=== PATIENT | male | born 1955 | race African-American/Black ===

== ENCOUNTER 2024-02-01 17:00 | Emergency (ER) | payer OTHER ==
[~2024-02-01] VITALS: Ht 182.9 cm; Wt 91.0 kg
[2024-02-01 17:04] VITALS: O2SAT 98
[2024-02-01 17:51] LABS: BASOPHILS % 0.7 % (0.0-2.0); EOSINOPHILS % 1.2 % (0.0-5.0); HEMATOCRIT. 35.7 % (42.0-52.0); HEMOGLOBIN. 11.7 g/dL (14.0-18.0); LYMPHOCYTES % 18.1 % (20.0-50.0); MEAN CORPUSCULAR HEMOGLOBIN 30.3 pg (28.0-32.0); MEAN CORPUSCULAR HGB CONC 32.8 g/dL (31.0-37.0); MEAN CORPUSCULAR VOLUME 92.3 fL (80.0-94.0); MEAN PLATELET VOLUME 10.6 fl (7.4-10.4); MONOCYTES % 7.4 % (2.0-8.0); NEUTROPHILS % 72.6 % (40.0-76.0); PLATELET 185 x1000/uL (130-400); RED BLOOD CELL COUNT 3.87 mill/uL (4.7-6.1); RED CELL DISTRIBUTION WIDTH 15.6 % (11.6-14.6); WHITE BLOOD COUNT 8.8 x1000/uL (4.5-11.0)
[2024-02-01] MEDS: CEFTRIAXONE 1GM/50ML 50 ML IV ONE (17:52)
[2024-02-01] MEDS: SODIUM CHLORIDE 0.9% (SEPSIS BOLUS) IV ONE (17:52)
[2024-02-01 18:02] LABS: CHLORIDE 105 mEq/L (98-107); POTASSIUM 4.5 mEq/L (3.5-5.1); SODIUM 135 mEq/L (136-145)
[2024-02-01 18:03] LABS: CALCIUM 9.3 mg/dL (8.7-10.4); CARBON DIOXIDE 21 mEq/L (21-32)
[2024-02-01 18:08] LABS: CREATININE 2.6 mg/dL (0.6-1.3); GLUCOSE 116 mg/dL (70-105); UREA NITROGEN BLOOD 40 mg/dL (9-23)
[2024-02-01 18:10] LABS: LACTIC ACID 2.6 mmol/L (0.4-2.0); TROPONIN I HIGH SENSITIVITY 21 ng/L (3.0-53)
[2024-02-01 20:53] LABS: TROPONIN I HIGH SENSITIVITY 35 ng/L (3.0-53)
[2024-02-02 00:55] VITALS: BP 140/83; PULSE 65; RESP 16; TEMP 37.00296; O2SAT 98
== END 2024-02-02 01:04 | disposition short-term general hospital (02) ==
LOC: ER 17:00 → EDBEDREQ 17:51 → ER 02-02 01:04
DX: A41.9 Sepsis, unspecified organism (principal); R65.20 Severe sepsis without septic shock; E11.9 Type 2 diabetes mellitus without complications; I10 Essential (primary) hypertension; N39.0 Urinary tract infection, site not specified; Z86.73 Personal history of transient ischemic attack (TIA), and cerebral infarction without residual deficits
CPT/HCPCS: 80048; 83605; 85025; 85610; 87040; 84484; 36415; 84145; 71045; 70450; 93005; 96365; 99285; J0696; J7030; Z7610